=== PATIENT | female | born 1990 | race Hispanic/Latino ===

== ENCOUNTER 2019-05-14 13:31 | Emergency (ER) | payer OTHER ==
[~2019-05-14] VITALS: Ht 157.5 cm; Wt 89.8 kg
--- OUTSIDE RECORDS SUMMARY | 2019-05-14 13:34 | XMS REPORT | Summary of Care ---
Author Author [facility] - Health Organization [facility] - Health Address Unknown Phone Unavailable Care Team Providers Care Textile Worker Name Role Phone Starla Patel CNM PCP Encounter Details Care Team Description Date Type Department Doctor Unassigned, [address] [place] [address] 05/04/2019 Orders Only [facility] [address] [place] [address] Allergies No Known Allergiesdocumented as of this encounter (statuses as of 05/04/2019) Medications No known medicationsdocumented as of this encounter (statuses as of 05/04/2019) Active Problems Problem Noted Date History of migraine with aura 07/16/2018 Obesity (BMI 30-39.9) 09/19/2017 Well woman exam 09/19/2017 documented as of this encounter (statuses as of 05/04/2019) Resolved Problems Problem Noted Date Resolved Date delivery delivered 09/20/2010 09/19/2017 Overview: ICD10 Diagnosis Term Assembler Type Bar And Segment Utility documented as of this encounter (statuses as of 05/04/2019) Immunizations Name Administration Dates Next Due MMR 09/22/2010 documented as of this encounter Social History Date Tobacco Use Types Packs/Day Years Used 07/16/2017 - 08/15/2017 Former Smoker Cigarettes 0.5 Smokeless Tobacco: Never Used Comments: Quit smoking in 2018 Drinks/Week oz/Week Comments Alcohol Use No Sex Assigned at Date Recorded Not on file Industry Job Start Date Occupation Not on file Not on file Not on file Travel End Travel History Travel Start No recent travel history available. documented as of this encounter Last Filed Vital Signs Not on filedocumented in this encounter Plan of Treatment Care Team Description Date Type Specialty JuanTonie Prashant, CN [address] [place], [place] [address] 05/04/2019 Office Visit OB [facility] ([facility]) Health Maintenance Due Date Last Done Comments VARICELLA VACCINES (1 of 1989 2 - 2-dose childhood series) DTaP,Tdap,and Td Vaccines 11/18/1999 (1 - Tdap) PAP SMEAR 03/18/2018 03/18/2015, 07/04/2010 INFLUENZA VACCINE (#1) 2018 PNEUMOCOCCAL 0-64 YEARS Aged Out No longer eligible based COMBINED SERIES on patient's age to complete this topic documented as of this encounter Procedures Comments Procedure Name Priority Date/Time Associated Diagnosis ASSIGNMENT OF BENEFITS Routine 05/04/2019 8:01 AM [employer]NAGER [employer] documented in this encounter Results Not on filedocumented in this encounter
[2019-05-14] MEDS ORDERED: MAGNESIUM/ALUMINUM/SIMETHICONE 30 ML UDC PO ONE (14:15)
[2019-05-14] MEDS ORDERED: FAMOTIDINE 20 MG TAB PO ONE (14:15)
[2019-05-14] MEDS ORDERED: LIDOCAINE VISC 2% SOLN 15 ML UDC PO ONE (14:15)
[2019-05-14 14:26] LABS: BASOPHILS # (AUTO) 0.1 (0.0-0.1); BASOPHILS % 0.9 % (0.0-1.0); EOSINOPHILS # (AUTO) 0.1 (0.0-0.4); EOSINOPHILS % 1.5 % (0.0-6.0); HEMATOCRIT 40.5 % (34.2-44.1); HEMOGLOBIN 13.7 g/dL (12.0-16.0); LYMPHOCYTES % 25.6 % (18.0-39.1); MEAN CORPUSCULAR HGB CONC 33.8 g/dL (31-35); MEAN CORPUSCULAR VOLUME 85.8 fL (81-99); MONOCYTES # (AUTO) 0.3 (0.2-0.8); MONOCYTES % 3.8 % (4.4-11.3); NEUTROPHILS # (AUTO) 5.4 (2.1-6.9); NEUTROPHILS % 67.4 % (38.7-80.0); PLATELET COUNT 292 x10e3/uL (140-360); RED BLOOD COUNT 4.72 x10e6/uL (3.6-5.1)
[2019-05-14] MEDS ORDERED: ASPIRIN 325 MG TAB PO ONE (14:30)
[2019-05-14 14:31] LABS: CLARITY,URINE SL CLOUDY (CLEAR); COLOR,URINE YELLOW (YELLOW); LEUKOCYTE ESTERASE ,URINE NEGATIVE (NEGATIVE); NITRITE,URINE NEGATIVE (NEGATIVE)
[2019-05-14 14:32] LABS: BILIRUBIN,URINE NEGATIVE (NEGATIVE); KETONES,URINE TRACE (NEGATIVE); PREGNANCY TEST, URINE NEGATIVE (NEGATIVE); PROTEIN,URINE DIPSTICK NEGATIVE (NEGATIVE); URINE UROBILINOGEN 0.2 mg/dL (0.2 - 1)
[2019-05-14 14:42] LABS: AMORPHOUS SEDIMENT,URINE FEW (FEW); BACTERIA,URINE FEW /HPF; EPITHELIAL CELLS,URINE FEW /LPF
[2019-05-14] MEDS ORDERED: BELLADONNA ALK/PHENOBARBITAL 5 ML UDC PO SCH (15:00)
--- NOTE | 2019-05-14 15:37 | Diagnostic Imaging Report ---
TECHNIQUE: Frontal view of the chest. INDICATION: 28-year-old woman with chest pressure. COMPARISON: Chest CT 03/21/2019, chest radiographs 03/20/2019. FINDINGS: LINES/TUBES: None. LUNGS: The lungs are well inflated and clear. PLEURA: No pneumothorax or significant pleural effusion. HEART AND MEDIASTINUM: The cardiomediastinal silhouette is within normal limits. SOFT TISSUES AND BONES: Unremarkable. IMPRESSION: No acute cardiopulmonary abnormalities. Signed by: Tariq Fitzgerald MD on 05/14/2019 3:34 PM
--- NOTE | 2019-05-14 15:49 | Diagnostic Imaging Report ---
EXAM: Right upper quadrant abdominal ultrasound INDICATION: Right upper quadrant pain COMPARISON: None. TECHNIQUE: Transverse and longitudinal images of the right upper quadrant abdomen were obtained FINDINGS: Liver: Size: 12.0 cm in the right midclavicular line, normal Appearance: Normal echogenicity, smooth contour Mass: No focal masses Gallbladder: 1.6 cm stone in the gallbladder. No gallbladder distension, pericholecystic fluid, wall thickening, or reported sonographic Clemente's sign. Gallbladder wall measures 3 mm. Bile Ducts: Intrahepatic Ducts: No dilatation Extrahepatic Ducts: Common bile duct measures 3 mm Pancreas: Visualized portions of the pancreatic head, neck and proximal body are normal. Kidney: The right kidney measures 11.4 cm without evidence of hydronephrosis or stone. Vessels: Aorta: Visualized portions are normal Inferior Vena Cava: Visualized portions are normal Main Portal Vein: 0 point cm, normal size with hepatopetal flow. Free Fluid: No ascites or pleural effusion IMPRESSION: Cholelithiasis without sonographic evidence of cholecystitis. Signed by: Josue Montilla MD on 05/14/2019 3:47 PM
[2019-05-14 16:30] LABS: ALANINE AMINOTRANSFERASE 43 IU/L (0-55); ALBUMIN 4.1 g/dL (3.5-5.0); ALBUMIN/GLOBULIN RATIO 1.1 (0.8-2.0); ALKALINE PHOSPHATASE 83 IU/L (40-150); ANION GAP 10.4 mmol/L (8-16); BLOOD UREA NITROGEN 12 mg/dL (7-26); BUN/CREATININE RATIO 18 (6-25); CALCIUM 9.1 mg/dL (8.4-10.2); CARBON DIOXIDE 26 mmol/L (22-29); CHLORIDE 104 mmol/L (98-107); CREATININE, SERUM 0.68 mg/dL (0.57-1.11); EST GLOMERULAR FILTRATION RATE > 60 ML/MIN (60-); GLUCOSE 79 mg/dL (74-118); LIPASE 20 U/L (8-78); POTASSIUM 3.4 mmol/L (3.5-5.1); SODIUM 137 mmol/L (136-145)
== END 2019-05-14 17:33 | disposition home or self-care (01) ==
LOC: ER 13:31
DX: R07.89 Other chest pain (principal); K21.9 Gastro-esophageal reflux disease without esophagitis
CPT/HCPCS: 36415; 71045; 76705; 80053; 81001; 81025; 83690; 84484; 85025; 87086; 93005; 99284

== ENCOUNTER 2020-09-27 11:11 | Emergency (ER) | payer BC, OTHER ==
[~2020-09-27] VITALS: Ht 157.5 cm; Wt 82.8 kg
[2020-09-27] MEDS ORDERED: KLONOPIN0.5 MG PO (12:09)
== END 2020-09-27 12:19 | disposition home or self-care (01) ==
LOC: FSED 11:26
DX: F41.1 Generalized anxiety disorder (principal)
CPT/HCPCS: 81003; 81025; 99283

== ENCOUNTER → 2020-10-18 | Emergency (ER) | payer BC ==
[~2020-10-18] MED LIST: KLONOPIN0.5 MG PO
== END | disposition left against medical advice (07) ==
LOC: FSED 19:15
DX: F41.9 Anxiety disorder, unspecified (principal)

== ENCOUNTER 2020-11-28 20:21 | Emergency (ER) | payer BC ==
[~2020-11-28] VITALS: Ht 157.5 cm; Wt 77.1 kg
[2020-11-28] MEDS ORDERED: IBUPROFEN 600 MG TAB PO STA (21:51)
[2020-11-28] MEDS ORDERED: IBUPROFEN 600 MG TAB ONE (22:05)
[2020-11-28] MEDS ORDERED: NAPROSYN500 MG PO (22:33)
== END 2020-11-28 23:00 | disposition home or self-care (01) ==
LOC: FSED 20:29
DX: R07.82 Intercostal pain (principal); F41.9 Anxiety disorder, unspecified
CPT/HCPCS: 81003; 99282